=== PATIENT | male | born 1955 | race Caucasian/White ===

== ENCOUNTER 2023-04-16 10:21 | Day surgery (SDC) | payer MEDICARE, BC, OTHER ==
[~2023-04-16] VITALS: Ht 172.7 cm; Wt 86.7 kg
[2023-04-16] MEDS ORDERED: ROSU5 (10:50)
[2023-04-16] MEDS ORDERED: HYDCHL25 (10:50)
[2023-04-16] MEDS ORDERED: LOSA25 (10:50)
--- NOTE | 2023-04-16 11:36 | NUR ---
04/16/23 1136 Romero Gregg PT BRADYCARDIC, ASYMPTOMATIC. AWARE. PT STATES HIS HEART RATE IS ALWAYS SLOW. VERY ACTIVE AT HOME
[2023-04-16 13:06] VITALS: BP 155/102
--- NOTE | 2023-04-16 13:07 | NUR ---
04/16/23 1307 Romero Gregg VS [facility] FOR PATIENT. PT IN SINUS BRADYCARDIA ASYMPTOMATIC MD AWARE.
== END 2023-04-16 13:09 | disposition home or self-care (01) ==
LOC: ORSCSDS 10:21
PROVIDERS: Internal Medicine Gastroenterology
PROC: 0DBL8ZX Excision of Transverse Colon, Via Natural or Artificial Opening Endoscopic, Diagnostic (ICD-10-PCS; principal; 2023-04-16 12:15)
PROC: 0DBP8ZX Excision of Rectum, Via Natural or Artificial Opening Endoscopic, Diagnostic (ICD-10-PCS; principal; 2023-04-16 12:15)
DX: Z12.11 Encounter for screening for malignant neoplasm of colon (principal); Z86.010 Personal history of colon polyps; Z80.0 Family history of malignant neoplasm of digestive organs; D12.3 Benign neoplasm of transverse colon; K51.40 Inflammatory polyps of colon without complications; G47.33 Obstructive sleep apnea (adult) (pediatric); I10 Essential (primary) hypertension; E78.5 Hyperlipidemia, unspecified; Z87.891 Personal history of nicotine dependence; Z79.899 Other long term (current) drug therapy
CPT/HCPCS: 88305; J0330; J0461; J2001; J2405; J2704; J7120; Q9968

== ENCOUNTER → 2023-07-22 | Outpatient (CLI) | payer BC, OTHER, MEDICARE ==
[~2023-07-22] MED LIST: HYDCHL25; LOSA25 PO; ROSU5
[2023-07-22 10:30] LABS: BASOPHILS ABSOLUTE AUTO 0.05 K/mm3 (0.00-0.23); BASOPHILS PERCENT AUTO 1 % (0-2); EOSINOPHILS ABSOLUTE AUTO 0.06 K/mm3 (0.00-0.68); EOSINOPHILS PERCENT AUTO 1 % (0-6); Hemoglobin 18.1 g/dL (13.5-17.5); IMMATURE GRAN ABSOLUTE AUTO 0.02 K/mm3 (0.00-0.10); IMMATURE GRAN PERCENT AUTO 0 % (0-1); LYMPHOCYTES ABSOLUTE AUTO 1.19 K/mm3 (0.84-5.20); LYMPHOCYTES PERCENT AUTO 19 % (21-46); MONOCYTES ABSOLUTE AUTO 0.43 K/mm3 (0.16-1.47); MONOCYTES PERCENT AUTO 7 % (4-13); Mean Corpuscular HGB 31.1 pg (26.0-34.0); Mean Corpuscular HGB Conc 35.5 g/dL (31.5-36.5); Mean Corpuscular Volume 88 fL (80-100); Mean Platelet Volume 10.6 fL (9.1-12.4); NEUTROPHILS ABSOLUTE AUTO 4.69 K/mm3 (1.96-9.15); NEUTROPHILS PERCENT AUTO 73 % (41-73); Platelet Count 225 K/mm3 (150-400); RDW Coefficient Variation 13.4 % (11.7-14.2); RDW Standard Deviation 42.5 fL (35.1-46.3); Red Blood Cell Count 5.82 M/mm3 (4.30-5.90); White Blood Cell Count 6.44 K/mm3 (4.00-11.30)
[2023-07-22 10:45] LABS: Albumin, Blood 4.5 g/dL (3.4-5.0); Albumin/Globulin Ratio 1.3 (0.8-1.8); Bilirubin, Total 1.1 mg/dL (0.1-1.0); Bun/Creatinine Ratio 13.9 (12.0-20.0); Calcium, Blood 9.5 mg/dL (8.5-10.1); Creatinine, Blood 1.08 mg/dL (0.60-1.20); Globulin, Blood 3.5 g/dL (2.2-4.0); Potassium, Blood 3.8 mmol/L (3.5-5.5)
[2023-07-24 01:07] LABS: CHLAMYDIA TRACHOMATIS, NAA Negative (Negative)
== END ==
LOC: LAB SHORT 10:26 → LAB 10:26
PROVIDERS: Physician Assistant
DX: R42 Dizziness and giddiness (principal); R31.9 Hematuria, unspecified; Z72.51 High risk heterosexual behavior
CPT/HCPCS: 80053; 85025; 87086; 87491; 87591

== ENCOUNTER 2023-07-24 07:42 | Emergency (ER) | payer BC, OTHER, MEDICARE ==
[~2023-07-24] VITALS: Ht 172.7 cm; Wt 88.5 kg
[2023-07-24 10:13] VITALS: BP 139/100
[2023-07-26 01:09] LABS: CHLAMYDIA TRACHOMATIS, NAA Negative (Negative)
== END 2023-07-24 10:10 | disposition home or self-care (01) ==
LOC: ER 07:42
PROVIDERS: Emergency Medicine
DX: R20.2 Paresthesia of skin (principal); E78.00 Pure hypercholesterolemia, unspecified; I10 Essential (primary) hypertension; Z20.822 Contact with and (suspected) exposure to COVID-19; Z79.899 Other long term (current) drug therapy
CPT/HCPCS: 84443; 99283

== ENCOUNTER 2025-05-29 20:36 | Emergency (ER) | payer BC, MEDICARE, OTHER ==
[~2025-05-29] VITALS: Ht 172.7 cm; Wt 83.9 kg
[2025-05-29 20:40] VITALS: BP 175/100
[2025-05-29] MEDS ORDERED: Tetracaine HCl/Pf 0.5% Opth Soln 4 ml LEFTEYE ONE (22:30)
[2025-05-29] MEDS ORDERED: Fluorescein Sod 1MG Opth Strips LEFTEYE SCH (22:30)
[2025-05-29] MEDS ORDERED: Cyclopentolate HCl 1% Opth Soln 2ML BTL BOTHEYES ONE (23:00)
[2025-05-29] MEDS ORDERED: PrednisoLONE 1% Opth Susp 5 ML BOTHEYES ONE (23:00)
[2025-05-30] MEDS ORDERED: Tobramycin/Dexameth Opth Susp 2.5 ML BOTHEYES ONE (00:25)
[2025-05-30] MEDS ORDERED: TOBRADEX ST EYE5 M1 BOTHEYES (00:47)
== END 2025-05-30 01:08 | disposition home or self-care (01) ==
LOC: ER 20:36
DX: H16.203 Unspecified keratoconjunctivitis, bilateral (principal); H01.006 Unspecified blepharitis left eye, unspecified eyelid; H01.003 Unspecified blepharitis right eye, unspecified eyelid; E78.00 Pure hypercholesterolemia, unspecified; I10 Essential (primary) hypertension; Z87.2 Personal history of diseases of the skin and subcutaneous tissue; Z79.899 Other long term (current) drug therapy; Z88.8 Allergy status to other drugs, medicaments and biological substances
CPT/HCPCS: 99283; A9270